=== PATIENT | female | born 1990 | race Caucasian/White ===

== ENCOUNTER 2018-05-20 03:40 | Observation (INO) ==
[2018-05-20] MEDS ORDERED: fentaNYL Citrate Inj 100 MCG/2 ML Ampul IV.PUSH PRN (04:39)
[2018-05-20] MEDS ORDERED: Clindamycin 900 mg/NS Premix 900 MG/50 ML PIGGYBACK IV.SIG SCH (04:45)
[2018-05-20 05:04] LABS: Hemoglobin 13.1 gm/dL (11.6-15.3); Mean Corpuscular HGB Conc 34.6 % (32.0-36.0); Mean Corpuscular Hemoglobin 31.6 pg (27.0-34.0); Mean Corpuscular Volume 91.4 fL (80.0-100.0); Mean Platelet Volume 8.4 fL (7.0-11.0); Platelet Count 219 th/mm3 (150-450); Red Blood Count 4.16 mil/mm3 (4.00-5.30); Red Cell Distribution Width 13.1 % (11.6-17.2); White Blood Count 15.6 th/mm3 (4.0-11.0)
[2018-05-20 05:09] LABS: Amphetamine Urine With Conf Neg (Neg); Benzodiazepine Urine With Conf Neg (Neg)
[2018-05-20] MEDS: Betamethasone Sod Phos/Acetate Inj 30 MG/5 ML Vial IM SCH ×2 (05:28→16:06)
--- NOTE | 2018-05-20 05:29 | P.HPOB ---
History of Present Illness Primary Care Physician: No Primary Care Physician Dr. Manrique Chief Complaint: CTXs History of Present Illness: Patient is 28-year-old white female at 33 weeks he goes to the [facility] clinic and sees Dr. Dobbins there, presents complaining of contractions since 11 PM last night, denies leakage of fluid or bleeding. Babies active. heart rate tracing is reactive and she is rosemarie every 2 minutes painfully Weeks Gestation:: 33 Para: 1 : 2 - Inpatient Certification If this patient has been admitted as an Inpatient: I certify that the inpatient services were ordered in accordance with Medicare regulations governing the order. This includes certification that hospital inpatient services are reasonable and necessary and in the case of services not specified as inpatient-only under 42 CFR 419.22(n), that they are appropriately provided as inpatient services in accordance to with the 2-midnight benchmark under 43 CFR 412.3(e) Plans for Post Hospital Care: Home Review of Systems Constitutional: Denies anorexia, Denies body ache(s), Denies chills, Denies daytime sleepiness, Denies excessive sweating, Denies fatigue, Denies fever(s), Denies headache(s), Denies increased appetite, Denies lack of energy, Denies malaise, Denies night sweats, Denies weakness, Denies weight gain, Denies weight loss, Denies other Cardiovascular: Denies bluish discoloration of hand/feet, Denies chest pain, Denies chest pain at rest, Denies chest pain with activity, Denies excessive sweating, Denies fainting, Denies fast heart rate, Denies foot swelling, Denies generalized swelling, Denies irregular heart rhythm, Denies leg pain with activity, Denies leg sores, Denies leg swelling, Denies lightheadedness, Denies radiating jaw, neck or arm pain, Denies rapid, pounding, or irregular heartbeat , Denies shortness of breath, Denies shortness of breath with activity, Denies shortness of breath when lying down, Denies shortness of breath causing sudden awakening, Denies slow heart rate, Denies other Respiratory: Denies change in phlegm color, Denies chest congestion, Denies cough, Denies coughing up blood, Denies excessive phlegm production, Denies pain on inspiration, Denies pain with cough, Denies shortness of breath, Denies shortness of breath with activity, Denies snoring, Denies stridor, Denies wheezing, Denies other Gastrointestinal: Denies abdominal pain, Denies belching, Denies black, tarry stools, Denies bloating, Denies bright, red blood in stools, Denies change in bowel habits, Denies constant urge to pass stool, Denies change in stools, Denies coffee ground vomit, Denies constipation, Denies cramping, Denies difficulty swallowing, Denies excessive passing of gas, Denies feeling full early, Denies heartburn, Denies incontinent of stools, Denies loose stools, Denies nausea, Denies pain with swallowing, Denies vomiting, Denies vomiting blood, Denies other Genitourinary: Denies abnormal periods, Denies abnormal vaginal bleeding, Denies absent period, Denies bleeding between periods, Denies blood in urine, Denies difficulty starting urination, Denies difficulty urinating, Denies dribbling after urination, Denies frequent nighttime urination, Denies genital itching, Denies genital lesions, Denies heavy periods, Denies hot flashes, Denies light periods, Denies nipple discharge, Denies painful intercourse, Denies painful periods, Denies painful urination, Denies pelvic pain, Denies prolapse symptoms, Denies sexual problems, Denies side pain, Denies urinary incontinence, Denies urinary urgency, Denies vaginal discharge, Denies vaginal dryness, Denies vaginal odor, Denies vaginal itching, Denies other Neurologic: Denies abnormal hearing, Denies abnormal movements, Denies abnormal speech, Denies abnormal walking, Denies behavioral changes, Denies burning sensations, Denies confusion, Denies dizziness, Denies fainting, Denies frequent falls, Denies headache(s), Denies lack of coordination, Denies localized weakness, Denies loss of vision, Denies memory loss, Denies numbness, Denies other visual disturbances, Denies radiating pain, Denies restless legs, Denies convulsions, Denies seizure-like activity, Denies sensory deficit, Denies tingling, Denies tingling/numbness/burning sensations, Denies tremor(s), Denies unsteadiness, Denies weakness, Denies other PMFSH - Tobacco History Smoking Status: Never smoker - Alcohol History How Often Do You Have a Drink Containing Alcohol: Never - Travel History History of Recent Travel: No Recent Travel in the [place] Within the Last 8 Weeks: No Recent Travel Out of the Country Within the Last 8 Weeks: No Medications and Allergies Active Medications: Active Medications Betamethasone Acet/Betameth SodPhos (Celestone Soluspan Inj) 12 mg IM Q24H [facility] Stop: 05/21/18 04:46 Fentanyl Citrate (Fentanyl Inj) 50 mcg IV.PUSH Q2H PRN PRN Reason: PAIN SCALE 1 TO 10 Lactated Ringer's (Lr 1000 Ml Inj) 1,000 mls @ 125 mls/hr IV.CONT .Q8H [facility] Clindamycin/Sodium Chloride (Cleocin 900 Mg/Ns Premix) 900 mg in 50 mls @ 100 mls/hr IV.SIG Q8H [facility] Nifedipine (Procardia) 10 mg PO Q20M [facility] Stop: 05/20/18 06:01 Non-Formulary Medication (Pnv Cmb#95-Ferrous Fumarate-Fa []) 1 tab PO DAILY [facility]SET Sodium Chloride (Ns Flush) 2 ml IV.FLUSH BID LISSET Sodium Chloride (Ns Flush) 2 ml IV.FLUSH PRN PRN PRN Reason: FLUSH AFTER USING IV ACCESS Terbutaline Sulfate (Brethine Inj) 0.25 mg SQ ONCE PRN PRN Reason: ABDOMINAL CRAMPING Allergies Allergy/AdvReac Type Severity Reaction Status Date / Time penicillin G Allergy Severe SWOLEN OF Unverified 06/17/17 12:46 HER THROAT Home Medications Medication Instructions Recorded Confirmed Type PNV cmb#95-ferrous fumarate-FA 1 tab PO DAILY 05/20/18 05/20/18 History [] Exam Vital signs: Vital Signs 05/20/18 03:57 05/20/18 04:00 Temperature 98.1 F Pulse Rate 98 H Respiratory Rate 18 Blood Pressure 117/87 Intake & Output 05/19/18 05/19/18 05/20/18 06:59 18:59 06:59 Weight 72.575 kg - Constitutional no acute distress - Routine HEENT Exam Head: Present: normocephalic, atraumatic Eye: Present: PERRL - Routine Respiratory Exam Present: CTA bilaterally - Routine Cardiovascular Exam Present: RRR - Routine Abdominal Exam Present: soft Comments: Size equal dates - Routine Exam Comments: Cervix is 2-3 /40%/-3 posterior vertex - Routine Skin Exam Present: intact - Routine Neurological Exam Present: alert, oriented X3, CN II-XII intact Results - Labs CBC & Chem 7: 05/20/18 04:30 Labs: Laboratory Results - last 24 hr 05/20/18 05/20/18 04:30 04:30 WBC 15.6 H RBC 4.16 Hgb 13.1 Hct 38.0 MCV 91.4 MCH 31.6 MCHC 34.6 RDW 13.1 Plt Count 219 MPV 8.4 Urine Opiates Screen Neg Ur Barbiturates Screen Neg Ur Amphetamine Screen Neg U Benzodiazepines Scrn Neg Urine Cocaine Screen Neg U Cannabinoids Screen Neg - Imaging Bedside ultrasound done by myself shows a single intrauterine cephalic presentation, normal anatomy scan, normal amniotic fluid volume, placenta is left lateral and fundal grade 0, estimated weight is 2207 gm, gestational age 33 weeks 1 day by biometric measurements Caprini VTE Risk Assessment Caprini VTE Risk Assessment: No/Low Risk (score <= 1) Caprini Risk Assessment Model: Point Value = 1 Point Value = 2 Point Value = 3 Point Value = 5 Age 41-60 Minor surgery BMI > 25 kg/m2 Swollen legs Varicose veins or History of unexplained or recurrent spontaneous Oral contraceptives or hormone replacement Sepsis (< 1 month) Serious lung disease, including pneumonia (< 1 month) Abnormal pulmonary function Acute myocardial infarction Congestive heart failure (< 1 month) History of inflammatory bowel disease Medical patient at bed rest Age 61-74 Arthroscopic surgery Major open surgery (> 45 min) Laparoscopic surgery (> 45 min) Malignancy Confined to bed (> 72 hours) Immobilizing plaster cast Central venous access Age >= 75 History of VTE Family history of VTE Factor V Leiden Prothrombin [id number] Lupus anticoagulant Anticardiolipin antibodies Elevated serum homocysteine Heparin-induced thrombocytopenia Other congenital or acquired thrombophilia Stroke (< 1 month) Elective arthroplasty Hip, pelvis, or leg fracture Acute spinal cord injury (< 1 month) Prophylaxis Regimen: Total Risk Factor Score Risk Level Prophylaxis Regimen 0-1 Low Early ambulation 2 Moderate Order ONE of the following: *Sequential Compression Device (SCD) *Heparin 5000 units SQ BID 3-4 Higher Order ONE of the following medications: *Heparin 5000 units SQ TID *Enoxaparin/Lovenox 40 mg SQ daily (WT < 150 kg, CrCl > 30 mL/min) *Enoxaparin/Lovenox 30 mg SQ daily (WT < 150 kg, CrCl > 10-29 mL/min) *Enoxaparin/Lovenox 30 mg SQ BID (WT < 150 kg, CrCl > 30 mL/min) AND/OR *Sequential Compression Device (SCD) 5 or more Highest Order ONE of the following medications: *Heparin 5000 units SQ TID (Preferred with Epidurals) *Enoxaparin/Lovenox 40 mg SQ daily (WT < 150 kg, CrCl > 30 mL/min) *Enoxaparin/Lovenox 30 mg SQ daily (WT < 150 kg, CrCl > 10-29 mL/min) *Enoxaparin/Lovenox 30 mg SQ BID (WT < 150 kg, CrCl > 30 mL/min) AND *Sequential Compression Device (SCD) Assessment and Plan - Diagnosis (1) labor in third trimester Code(s): O60.03 - labor without delivery, third trimester Status: Acute - Plan Plan to tocolyse labor with Procardia after giving IV hydration, subcu terbutaline, this was after discussion with her primary melter caster Dr. Manrique. Patient to receive betamethasone injection 12 mg every 24 hours 2 Also start clindamycin 900 mg every 8 hours IV[patient has a penicillin allergy] We will check CBC and urinalysis as well as GBS rapid screen
[2018-05-20] MEDS: NIFEdipine 10 MG Capsule PO SCH ×2 (05:30→06:17)
--- NOTE | 2018-05-20 06:45 | P.OBGPN ---
Reviewed orders on pt, switched to Vanc for GBS ppx as do not know clinda susceptible. GBS culture pending. Placed NICU and MFM consult (MFM only for growth), and briefly notified my on coming partner of the patient
[2018-05-20 07:42] LABS: Bilirubin,Urine Negative (Negative); Clarity,Urine Clear (Clear); Color,Urine Yellow (Yellw/Straw); Glucose,Urine (UA) Negative (Negative); Leukocyte Esterase,Urine Negative (Negative); Nitrite,Urine Negative (Negative); Specific Gravity,Urine 1.004 (1.002-1.035); Squamous Epithelial Cell,Urine <1 /hpf (0-5)
[2018-05-20] MEDS ORDERED: Mag Sulf/Water 4 gm/100 ml 100 ML IV.SIG ONE (08:06)
--- NOTE | 2018-05-20 08:12 | P.OBANTE ---
Subjective Interval History: 28 yo wf at 33 weeks with regular contractions this am despite hyudration, antibiotics and nifedipine. Has received one dose steroids. no recent infection reported but WBC elevated. GFM No leaking but bloody show on glove. 3 cm/80/-1 vertex. No elevated BP. No N,V,CHEEMA or blurred vision. Objective Vital Signs and I&O: Vital Signs 05/20/18 03:57 05/20/18 04:00 05/20/18 05:34 Temperature 98.1 F Pulse Rate 98 H 122 H Respiratory Rate 18 Blood Pressure 117/87 117/57 L Intake & Output 05/19/18 05/20/18 05/20/18 18:59 06:59 18:59 Weight 72.575 kg 65.318 kg Lab and Micro Results: Laboratory Results - last 24 hr 05/20/18 05/20/18 05/20/18 04:30 04:30 04:30 WBC 15.6 H RBC 4.16 Hgb 13.1 Hct 38.0 MCV 91.4 MCH 31.6 MCHC 34.6 RDW 13.1 Plt Count 219 MPV 8.4 Urine Color Urine Clarity Urine pH Ur Specific [place] Urine Protein Urine Glucose (UA) Urine Ketones Urine Occult Blood Urine Nitrate Urine Bilirubin Urine Urobilinogen Ur Leukocyte Esterase Urine WBC Ur Squamous Epith Cells Micro UA Comment Urine Culture Comments Urine Opiates Screen Neg Ur Barbiturates Screen Neg Ur Amphetamine Screen Neg U Benzodiazepines Scrn Neg Urine Cocaine Screen Neg U Cannabinoids Screen Neg Blood Type B Positive Antibody Screen Negative 05/20/18 04:30 WBC RBC Hgb Hct MCV MCH MCHC RDW Plt Count MPV Urine Color Yellow Urine Clarity Clear Urine pH 7.0 Ur Specific [place] 1.004 Urine Protein Negative Urine Glucose (UA) Negative Urine Ketones Trace H Urine Occult Blood Negative Urine Nitrate Negative Urine Bilirubin Negative Urine Urobilinogen Less than 2 Ur Leukocyte Esterase Negative Urine WBC Less than 1 Ur Squamous Epith Cells <1 Micro UA Comment Culture not ind Urine Culture Comments Culture not ind Urine Opiates Screen Ur Barbiturates Screen Ur Amphetamine Screen U Benzodiazepines Scrn Urine Cocaine Screen U Cannabinoids Screen Blood Type Antibody Screen Physical Exam: GENERAL: Well-nourished, well-developed patient. CARDIOVASCULAR: Regular rate and rhythm without murmurs, gallops, or rubs. RESPIRATORY: Breath sounds equal bilaterally. No accessory muscle use. ABDOMEN/GI: Abdomen soft, non-tender. Fundus: [-] GENITOURINARY: External Genitalia: intact and normal in appearance 3/80/-1 vertex low pressure on cervix noted EXTREMITIES: No cyanosis or edema, non-tender, without signs of DVT. Assessment and Plan - Diagnosis (1) labor in third trimester Code(s): O60.03 - labor without delivery, third trimester Status: Acute - Plan Plan to tocolyse labor with Procardia after giving IV hydration, subcu terbutaline, this was after discussion with her primary project development engineer Dr. Manrique. Patient to receive betamethasone injection 12 mg every 24 hours 2 Also start clindamycin 900 mg every 8 hours IV[patient has a penicillin allergy] We will check CBC and urinalysis as well as GBS rapid screen 05/20/18 8:00 Will stop procardia and start Mg patel prn continiue antibiotics for now BPP and EFW for NICU second dose steroids possible PTD
[2018-05-20] MEDS: Vancomycin Inj 1,000 MG in Sodium Chlor 0.9% Inj 250 ML IV.SIG SCH (08:18)
[2018-05-20] MEDS: Mag Sulf/Water 40 gm/1000 ml 40 GM/1,000 ML BAG IV.CONT SCH (08:36)
[2018-05-20] MEDS ORDERED: Prenatal Vit/Ca/Iron/Folic Acid Tablet PO SCH (09:00)
[2018-05-20] MEDS ORDERED: fentaNYL 2MCG-Bupiv 0.125% Epi 150 ML EPIDURAL ONE (15:17)
[2018-05-20] MEDS ORDERED: Betamethasone Sod Phos/Acetate Inj 30 MG/5 ML Vial IM ONE (16:00)
[2018-05-20] MEDS ORDERED: fentaNYL Citrate Inj 100 MCG/2 ML Ampul EPIDURAL ONE (16:10)
[2018-05-20] MEDS ORDERED: fentaNYL 2MCG-Bupiv 0.125% Epi 150 ML EPIDURAL PRN (16:10)
--- NOTE | 2018-05-20 18:02 | P.OBLABOR ---
Subjective Interval history: In midafternoon contractions increased in frequency and intensity and she was transferred to labor side and given an epidural. They have greatly diminished. tolerating mag well. Will keep status quo until tomorrow morning and then stop Mag and see if labors or not. Objective Vital Signs: Vital Signs - 8 hr 05/20/18 10:20 05/20/18 10:25 05/20/18 10:35 Temperature Pulse Rate 119 H 113 H 112 H Respiratory Rate Blood Pressure 119/56 L 05/20/18 10:40 05/20/18 10:45 05/20/18 10:49 Temperature Pulse Rate 111 H 132 H Respiratory Rate 18 Blood Pressure 05/20/18 10:50 05/20/18 10:55 05/20/18 11:10 Temperature Pulse Rate 113 H 120 H 119 H Respiratory Rate Blood Pressure 128/60 05/20/18 11:35 05/20/18 11:55 05/20/18 12:40 Temperature Pulse Rate 117 H 119 H 107 H Respiratory Rate Blood Pressure 136/57 L 05/20/18 12:55 05/20/18 13:00 05/20/18 13:40 Temperature Pulse Rate 101 H 121 H 106 H Respiratory Rate 20 Blood Pressure 05/20/18 13:55 05/20/18 13:57 05/20/18 14:00 Temperature 98.2 F Pulse Rate 115 H 118 H Respiratory Rate Blood Pressure 05/20/18 14:05 05/20/18 14:10 05/20/18 14:25 Temperature Pulse Rate 116 H 116 H 110 H Respiratory Rate Blood Pressure 123/68 05/20/18 15:45 05/20/18 15:50 05/20/18 15:55 Temperature Pulse Rate 104 H 102 H 97 H Respiratory Rate Blood Pressure 135/79 112/70 113/69 05/20/18 16:00 05/20/18 16:10 05/20/18 16:50 Temperature Pulse Rate 104 H 97 H Respiratory Rate 18 Blood Pressure 111/64 116/65 05/20/18 16:55 05/20/18 17:00 05/20/18 17:40 Temperature 97.4 F L Pulse Rate 97 H 101 H 96 H Respiratory Rate 18 Blood Pressure 121/70 121/73 Objective: Pelvic Exam: Cervix: [-] Dilatation: [-] Effacement: [-] Station: [-] Presentation: [-] Membranes: [intact or ruptured] Uterine Contractions: [-] FHT's: Category: [-] Baseline: [-] Reactive: [-] Variability: [-] Decels: [-] Assessment and Plan - Diagnosis (1) labor in third trimester Code(s): O60.03 - labor without delivery, third trimester Status: Acute - Plan Plan to tocolyse labor with Procardia after giving IV hydration, subcu terbutaline, this was after discussion with her primary penology teacher Dr. Manrique. Patient to receive betamethasone injection 12 mg every 24 hours 2 Also start clindamycin 900 mg every 8 hours IV[patient has a penicillin allergy] We will check CBC and urinalysis as well as GBS rapid screen 05/20/18 8:00 Will stop procardia and start Mg patel prn continiue antibiotics for now BPP and EFW for NICU second dose steroids possible PTD
[2018-05-21] MEDS: Vancomycin Inj 1,000 MG in Sodium Chlor 0.9% Inj 250 ML IV.SIG SCH (06:00)
[2018-05-21] MEDS: Mag Sulf/Water 40 gm/1000 ml 40 GM/1,000 ML BAG IV.CONT SCH (06:02)
--- NOTE | 2018-05-21 07:53 | P.OBANTE ---
Subjective Interval History: With Magnesium for neuroprotection and epidural contractions have stopped. will discontinue magnesium and turn off epidural and leave in place. if contractions resume, we will allow to deliver if they do not return will consider discharge to home. patient lives in [place]. Objective Vital Signs and I&O: Vital Signs 05/20/18 08:29 05/20/18 08:44 05/20/18 08:45 Temperature Pulse Rate 111 H 125 H 126 H Respiratory Rate 18 17 Blood Pressure 111/46 L 116/49 L 123/49 L 05/20/18 08:55 05/20/18 09:00 05/20/18 09:20 Temperature 97.9 F Pulse Rate 127 H 120 H 123 H Respiratory Rate Blood Pressure 118/47 L 117/50 L 05/20/18 09:30 05/20/18 09:35 05/20/18 09:55 Temperature Pulse Rate 115 H 123 H 139 H Respiratory Rate Blood Pressure 05/20/18 10:20 05/20/18 10:25 05/20/18 10:35 Temperature Pulse Rate 119 H 113 H 112 H Respiratory Rate Blood Pressure 119/56 L 05/20/18 10:40 05/20/18 10:45 05/20/18 10:49 Temperature Pulse Rate 111 H 132 H Respiratory Rate 18 Blood Pressure 05/20/18 10:50 05/20/18 10:55 05/20/18 11:10 Temperature Pulse Rate 113 H 120 H 119 H Respiratory Rate Blood Pressure 128/60 05/20/18 11:35 05/20/18 11:55 05/20/18 12:40 Temperature Pulse Rate 117 H 119 H 107 H Respiratory Rate Blood Pressure 136/57 L 05/20/18 12:55 05/20/18 13:00 05/20/18 13:40 Temperature Pulse Rate 101 H 121 H 106 H Respiratory Rate 20 Blood Pressure 05/20/18 13:55 05/20/18 13:57 05/20/18 14:00 Temperature 98.2 F Pulse Rate 115 H 118 H Respiratory Rate Blood Pressure 05/20/18 14:05 05/20/18 14:10 05/20/18 14:25 Temperature Pulse Rate 116 H 116 H 110 H Respiratory Rate Blood Pressure 123/68 05/20/18 15:45 05/20/18 15:50 05/20/18 15:55 Temperature Pulse Rate 104 H 102 H 97 H Respiratory Rate Blood Pressure 135/79 112/70 113/69 05/20/18 16:00 05/20/18 16:10 05/20/18 16:50 Temperature Pulse Rate 104 H 97 H Respiratory Rate 18 Blood Pressure 111/64 116/65 05/20/18 16:55 05/20/18 17:00 05/20/18 17:40 Temperature 97.4 F L Pulse Rate 97 H 101 H 96 H Respiratory Rate 18 Blood Pressure 121/70 121/73 05/20/18 17:55 05/20/18 18:15 05/20/18 18:25 Temperature Pulse Rate 94 H 96 H 89 Respiratory Rate 17 Blood Pressure 113/76 05/20/18 18:31 05/20/18 19:15 05/20/18 20:15 Temperature 98.0 F Pulse Rate 100 H 89 Respiratory Rate 18 18 Blood Pressure 125/68 120/71 05/20/18 20:40 05/20/18 22:55 05/20/18 23:40 Temperature Pulse Rate 75 80 72 Respiratory Rate Blood Pressure 118/63 109/61 05/21/18 01:10 05/21/18 01:40 05/21/18 02:40 Temperature Pulse Rate 85 70 77 Respiratory Rate Blood Pressure 114/70 118/59 L 111/59 L 05/21/18 05:35 Temperature Pulse Rate 69 Respiratory Rate Blood Pressure 108/56 L Intake & Output 05/20/18 05/21/18 05/21/18 18:59 06:59 18:59 Intake Total 1250 / 1250 1999 / 1999 Balance 1250 / 1250 1999 / 1999 Weight 65.318 kg Intake: IV 1250 / 1250 1999 / 1999 LR 1000 mL Inj 1,000 ML @ 125 1000 / 1000 1000 / 1000 mls/hr IV.CONT .Q8H [facility] Rx#: [id number] Magnesium Sulfate/Water 40 gm/ 1000 / 1000 1000 ml Premix 40 gm In 1,000 ml @ 2 GM/HR 50 mls/hr IV.CONT Q24H [facility] Rx#:[id number] Vancomycin Inj 1,000 MG In NS 250 / 250 Inj 250 ML @ 250 mls/hr IV.SIG Q12H [facility] Rx#:[id number] Lab and Micro Results: Laboratory Results - last 24 hr 05/20/18 07:30 Group B Strep (PCR) Positive Physical Exam: GENERAL: Well-nourished, well-developed patient. CARDIOVASCULAR: Regular rate and rhythm without murmurs, gallops, or rubs. RESPIRATORY: Breath sounds equal bilaterally. No accessory muscle use. ABDOMEN/GI: Abdomen soft, non-tender. Fundus: [-] GENITOURINARY: External Genitalia: intact and normal in appearance Cervix: [-] Dilatation: [-] Effacement: [-] Station: [-] Presentation: [-] Membranes: [-] Uterine Contractions: [-] FHT's: Category: [-] Baseline: [-] Reactive: [-] Variability: [-] Decels: [-] EXTREMITIES: No cyanosis or edema, non-tender, without signs of DVT. Assessment and Plan - Diagnosis (1) labor in third trimester Code(s): O60.03 - labor without delivery, third trimester Status: Acute - Plan Plan to tocolyse labor with Procardia after giving IV hydration, subcu terbutaline, this was after discussion with her primary efficiency expert Dr. Manrique. Patient to receive betamethasone injection 12 mg every 24 hours 2 Also start clindamycin 900 mg every 8 hours IV[patient has a penicillin allergy] We will check CBC and urinalysis as well as GBS rapid screen 05/20/18 8:00 Will stop procardia and start Mg patel prn continiue antibiotics for now BPP and EFW for NICU second dose steroids possible PTD
== END 2018-05-21 15:30 | disposition home or self-care (01) ==
LOC: HOBED 03:40 → H2E 03:40
PROVIDERS: ADMIT Obstetrics & Gynecology; ATTEND Obstetrics & Gynecology

== ENCOUNTER 2018-06-14 00:40 | Inpatient (IN) ==
--- NOTE | 2018-06-14 01:35 | ED ---
History of Present Illness Primary Care Physician: UNKNOWN Chief Complaint: ctx History of Present Illness: Pt is a 28y/o @ 36.4wks. She has PNC with Dr. Dobbins. Has a h/o PTL this preg s/p APU admission and BMZ. Was d/c'd at 3-4cm dilated. Presents this evening with c/o ctx since 10pm. Reports being uncomfortable in bed and then had emesis/diarrhea. Denies LOF or VB. +FM. OBHx: 1. 2. current Weeks Gestation:: 36 Para: 1 : 2 Review of Systems All other systems reviewed negative except as stated in HPI PMFSH - Medical History Medical History: Medical History (Last Updated 06/14/18 @ 01:32 by Krystyna Calvin MD) H/O wisdom tooth extraction - Surgical History Surgical History: Surgical History (Last Updated 06/14/18 @ 01:32 by Krystyna Calvin MD) History of breast augmentation History of surgery on arm - Tobacco History Smoking Status: Never smoker - Alcohol History How Often Do You Have a Drink Containing Alcohol: Never - Travel History History of Recent Travel: No Medications and Allergies Active Medications: Active Medications Lactated Ringer's (Lr 1000 Ml Inj) 1,000 mls @ 0 mls/hr IV.CONT .Q0M [facility]ISSET Sodium Chloride (Ns Flush) 2 ml IV.FLUSH BID LISSET Sodium Chloride (Ns Flush) 2 ml IV.FLUSH PRN PRN PRN Reason: FLUSH AFTER USING IV ACCESS Allergies Allergy/AdvReac Type Severity Reaction Status Date / Time penicillin G Allergy Severe SWOLEN OF Verified 06/14/18 01:54 HER THROAT Home Medications Medication Instructions Recorded Confirmed Type PNV cmb#95-ferrous fumarate-FA 1 tab PO DAILY 05/20/18 06/14/18 History [] Exam Vital signs: Vital Signs 06/14/18 01:00 Temperature 98.1 F Pulse Rate 82 Respiratory Rate 18 Blood Pressure 123/69 Intake & Output 06/13/18 06/13/18 06/14/18 06:59 18:59 06:59 Weight 73.936 kg Narrative: General: well developed, well nourished, no acute distress HEENT: normocephalic atraumatic, extraocular movements intact, neck supple Abdomen: soft, gravid, nontender, nondistended Uterus: fundus palpates mild Extremities: full range of motion Skin: normal coloration, no rashes, no suspicious skin lesions noted Neurologic: cranial nerves 2-12 grossly intact, normal muscle tone, normal gait Psychiatric: normal mood and affect, appropriate FHTs: 130s, +accels, no decels, moderate variability, reactive Mcguffey: ctx q1.5m (mild to pt) Cvx: 3-50/-2 (unchanged from prior discharge) Assessment and Plan - Diagnosis (1) 36 weeks gestation of Code(s): Z3A.36 - 36 weeks gestation of Status: Acute (2) contractions Code(s): O47.9 - False labor, unspecified Status: Acute - Plan 28y/o @ 36.4wks with ctx. -- s/p BMZ -- FHTs cat 1 -- cvx stable from prior d/c -- check UA -- IVF bolus Dispo: recheck cvx in 1hr if ctx continue Update @ 02:25 -- cvx 570/-2 -- admit to L&D -- CLD, CEFM/toco, epidural/patel PRN -- vanc for GBS+ with PCN throat swelling Dr. Red, client liaison, notified of pt status and agrees with plan of care. She would assume care of the pt. Courtesy orders placed. Discharge Plan - Physicians Team ED Provider: Krystyna Calvin V Primary Care Provider: UNKNOWN, - Rxs /Orders / Referrals /Forms Prescriptions: No Action PNV cmb#95-ferrous fumarate-FA [] 28 mg iron- 800 mcg Tablet 1 tab PO DAILY - Discharge Instructions Print Language: Greenlandic
[2018-06-14 01:55] LABS: Bilirubin,Urine Negative (Negative); Clarity,Urine Clear (Clear); Color,Urine Yellow (Yellw/Straw); Glucose,Urine (UA) Negative (Negative); Leukocyte Esterase,Urine Negative (Negative); Nitrite,Urine Negative (Negative); Specific Gravity,Urine 1.005 (1.002-1.035)
[2018-06-14] MEDS ORDERED: Sodium Chlor 0.9% Inj 500 ML IV.SIG PRN (02:24)
[2018-06-14] MEDS ORDERED: Naloxone Inj 0.4 MG/ML Vial IV.PUSH PRN ×2 (02:24→11:36)
[2018-06-14] MEDS ORDERED: fentaNYL Citrate Inj 100 MCG/2 ML Ampul IV.PUSH PRN (02:24)
[2018-06-14] MEDS ORDERED: Sod Chloride 0.9% Inj 1,000 ML IV.CONT PRN (02:24)
[2018-06-14] MEDS ORDERED: Oxytocin 30 Units/500ml Premix 30 UNITS/500 ML BAG IV.SIG ONE (02:24)
[2018-06-14] MEDS ORDERED: Citric Acid/Sodium Citrate Liq 30 ML UDC PO SCH (02:30)
[2018-06-14] MEDS ORDERED: fentaNYL 2MCG-Bupiv 0.125% Epi 150 ML EPIDURAL ONE (02:34)
[2018-06-14] MEDS ORDERED: Lidocaine PF 1% Inj 5 ML Vial ONE (02:35)
[2018-06-14] MEDS ORDERED: Vancomycin Inj 1 GM/200 ML PIGGYBACK IV.SIG SCH (03:00)
[2018-06-14] MEDS: Vancomycin Inj 1,000 MG in Sodium Chlor 0.9% Inj 250 ML IV.SIG SCH ×2 (03:06→16:27)
[2018-06-14 03:07] LABS: Baso % (Auto) 0.2 % (0.0-2.0); Eos % (Auto) 0.2 % (0.0-4.0); Hematocrit 37.7 % (35.0-46.0); Hemoglobin 13.4 gm/dL (11.6-15.3); Lymph # (Auto) 1.8 th/mm3 (1.0-4.8); Lymph % (Auto) 13.8 % (9.0-44.0); Mean Corpuscular HGB Conc 35.4 % (32.0-36.0); Mean Corpuscular Hemoglobin 32.3 pg (27.0-34.0); Mean Corpuscular Volume 91.1 fL (80.0-100.0); Mean Platelet Volume 8.6 fL (7.0-11.0); Mono # (Auto) 0.7 th/mm3 (0.0-0.9); Mono % (Auto) 5.6 % (0.0-8.0); Neut # (Auto) 10.2 th/mm3 (1.8-7.7); Neut % (Auto) 80.2 % (16.0-70.0); Platelet Count 212 th/mm3 (150-450); Red Blood Count 4.14 mil/mm3 (4.00-5.30); Red Cell Distribution Width 13.7 % (11.6-17.2); White Blood Count 12.7 th/mm3 (4.0-11.0)
[2018-06-14 03:17] LABS: Amphetamine Urine With Conf Neg (Neg); Benzodiazepine Urine With Conf Neg (Neg)
[2018-06-14] MEDS ORDERED: fentaNYL 2MCG-Bupiv 0.125% Epi 150 ML EPIDURAL PRN (04:02)
[2018-06-14] MEDS ORDERED: fentaNYL Citrate Inj 100 MCG/2 ML Ampul EPIDURAL ONE (04:02)
[2018-06-14] MEDS ORDERED: Oxytocin 30 Units/500ml Premix 30 UNITS/500 ML BAG IV.SIG PRN (09:31)
--- NOTE | 2018-06-14 09:36 | P.OBLABOR ---
Subjective Interval history: pt comfortable with epidural Objective Vital Signs: Vital Signs - 8 hr 06/14/18 03:20 06/14/18 03:30 06/14/18 03:40 Temperature Pulse Rate 74 84 Respiratory Rate 18 Blood Pressure 115/74 124/82 06/14/18 03:45 06/14/18 03:55 06/14/18 04:30 Temperature Pulse Rate 78 76 92 H Respiratory Rate Blood Pressure 109/67 115/72 151/133 H 06/14/18 04:45 06/14/18 05:00 06/14/18 05:30 Temperature Pulse Rate 68 70 61 Respiratory Rate Blood Pressure 122/79 109/78 06/14/18 06:00 06/14/18 06:16 06/14/18 06:30 Temperature Pulse Rate 66 71 65 Respiratory Rate Blood Pressure 118/68 115/91 H 110/67 06/14/18 06:54 06/14/18 07:00 06/14/18 07:30 Temperature Pulse Rate 64 72 Respiratory Rate 15 16 Blood Pressure 119/69 124/77 06/14/18 07:31 06/14/18 07:34 06/14/18 07:59 Temperature 98.1 F Pulse Rate 82 58 L Respiratory Rate 16 16 Blood Pressure 135/91 H 102/63 06/14/18 08:00 06/14/18 08:30 06/14/18 08:45 Temperature Pulse Rate 68 74 71 Respiratory Rate 16 16 Blood Pressure 103/53 L 116/87 132/76 06/14/18 09:15 Temperature Pulse Rate 79 Respiratory Rate Blood Pressure 111/75 Objective: Pelvic Exam: Cervix: [-] 5-6cm Dilatation: [-] Effacement: [-] 70 Station: [-] -1 Presentation: [-] vtx Membranes: [intact or ruptured] arom clear Uterine Contractions: [-] irreg FHT's: Category: [-] 1 Baseline: [-] Reactive: [-] Variability: [-] good Decels: [-] Weeks Gestation: 36 Patient Started Active Labor: Yes Active Labor Start Date: 06/14/18 Active Labor Start Time: 02:00 Medical Induction of Labor: No Artificial Rupture of Membrane: Yes Artificial ROM Date: 06/14/18 Artificial ROM Time: 08:45 Assessment and Plan - Plan 28y/o @ 36.4wks with ctx. -- s/p BMZ -- FHTs cat 1 -- vanc for GBS+ with PCN throat swelling arom clear, pit jun, has epid, anticipate Discharge Plannin-3 days PP - Attending Attestation pt seen by me
[2018-06-14] MEDS ORDERED: Witch Hazel 50%/Glyderin 12.5% 40 Pad Jar RECTAL PRN (11:36)
[2018-06-14] MEDS ORDERED: Bisacodyl 10 MG Supp RECTAL PRN (11:36)
[2018-06-14] MEDS ORDERED: Zolpidem Tartrate 5 MG Tablet PO PRN (11:36)
[2018-06-14] MEDS ORDERED: Benzocaine 20% Top Spray 60 ML Can TOPICAL PRN (11:36)
[2018-06-14] MEDS ORDERED: Acetaminophen 325 MG Tablet PO PRN (11:36)
--- NOTE | 2018-06-14 11:36 | P.OBDELI ---
Weeks Gestation: 36 Patient Started Active Labor: Yes Active Labor Start Date: 06/14/18 Active Labor Start Time: 08:42 Medical Induction of Labor: No Artificial Rupture of Membrane: Yes Artificial ROM Date: 06/14/18 Artificial ROM Time: 08:42 Anesthesia: Epidural Episiotomy: none Vaginal Delivery: Normal Presentation: Occiput anterior, Face presentation, Compound (rt hand) Nuchal Cord: None Delayed Cord Clamping (45 sec): Yes Placenta: Spontaneous delivery Laceration: 1 deg Repair: Chromic interrupted Estimated blood loss (mL): 250 : Male (ALIRIO)
[2018-06-14] MEDS ORDERED: Oxytocin 30 Units/500ml Premix 30 UNITS/500 ML BAG IV.CONT SCH (11:45)
[2018-06-14] MEDS ORDERED: Measles/Mumps/Rubella Vaccine Inj 0.5 ML Vial SQ ONE (16:00)
[2018-06-14] MEDS ORDERED: Diphtheria/Tetanus/Pertussis Vaccine Inj 0.5 ML Syringe IM ONE (16:00)
[2018-06-14] MEDS: Prenatal Vit/Ca/Iron/Folic Acid Tablet PO SCH (16:27)
[2018-06-15] MEDS: Senna/Docusate Sodium 8.6/50 MG Tablet PO SCH ×2 (00:32→08:13)
[2018-06-15] MEDS: Ibuprofen 400 MG Tablet PO PRN ×2 (02:32→10:35)
[2018-06-15] MEDS: Vancomycin Inj 1,000 MG in Sodium Chlor 0.9% Inj 250 ML IV.SIG SCH ×2 (06:17→17:08)
--- NOTE | 2018-06-15 08:08 | P.PNOB ---
Subjective Post day: 1 Interval history: pt did well overnight PPD#1, ambulating, voiding, , pain well controlled Objective Vital Signs/I&O: Vital Signs 06/14/18 08:30 06/14/18 08:45 06/14/18 09:15 Temperature Pulse Rate 74 71 79 Respiratory Rate 16 16 Blood Pressure 116/87 132/76 111/75 06/14/18 10:00 06/14/18 10:15 06/14/18 10:45 Temperature Pulse Rate 69 Respiratory Rate 18 18 18 Blood Pressure 113/69 06/14/18 10:46 06/14/18 10:50 06/14/18 11:01 Temperature Pulse Rate 94 H 80 Respiratory Rate 18 Blood Pressure 130/71 104/61 06/14/18 11:15 06/14/18 11:46 06/14/18 12:30 Temperature Pulse Rate 85 55 L 64 Respiratory Rate 18 18 Blood Pressure 140/77 161/104 H 111/63 06/14/18 12:31 06/14/18 12:45 06/14/18 13:00 Temperature 99.0 F Pulse Rate 117 H Respiratory Rate 16 18 Blood Pressure 110/86 06/14/18 13:01 06/14/18 14:30 06/14/18 21:50 Temperature 97.6 F 98.6 F Pulse Rate 62 64 60 Respiratory Rate 18 16 Blood Pressure 102/60 115/69 109/72 Result Diagrams: 06/14/18 01:30 Objective Remarks: GENERAL: Well-nourished, well-developed patient. CARDIOVASCULAR: Regular rate and rhythm without murmurs, gallops, or rubs. RESPIRATORY: Breath sounds equal bilaterally. No accessory muscle use. ABDOMEN/GI: Abdomen soft, non-tender. Fundus: Firm, non-tender at umbilicus. GENITOURINARY: Light to moderate bleeding. EXTREMITIES: No cyanosis or edema, non-tender, without signs of DVT. Medications and IVs: Active Medications Acetaminophen (Tylenol) 650 mg PO Q4H PRN PRN Reason: PAIN SCALE 1 TO 2 Al Hydroxide/Mg Hydroxide (Milk Of Magnesia Liq) 30 ml PO Q12H PRN PRN Reason: Mild Constipation Benzocaine (Americaine 20% Top [place]) 1 spray TOPICAL Q4H PRN PRN Reason: For Perineum Discomfort Bisacodyl (Dulcolax Supp) 10 mg RECTAL DAILY PRN PRN Reason: SEVERE CONSITIPATION Citric Acid/Sodium Citrate (Sodium Citrate/Citric Acid Liq) 30 ml PO [employer] [facility] Stop: 06/18/18 02:29 Fentanyl Citrate (Fentanyl Inj) 50 mcg IV.PUSH Q1H PRN PRN Reason: Pain Scale 3 - 5 Lactated Ringer's (Lr 1000 Ml Inj) 1,000 mls @ 0 mls/hr IV.CONT .Q0M [facility] Last Infusion: 06/14/18 02:47 Dose: Infused Lactated Ringer's (Lr 1000 Ml Inj) 1,000 mls @ 125 mls/hr IV.CONT .Q8H [facility] Last Admin: 06/15/18 06:17 Dose: Not Given Lactated Ringer's (Lr 1000 Ml Inj) 1,000 mls @ 3,000 mls/hr IV.SIG UNSCH PRN PRN Reason: compromise or epidural Last Admin: 06/14/18 09:27 Dose: 3,000 mls/hr Sodium Chloride (Ns Inj) 500 mls @ 1,000 mls/hr IV.SIG UNSCH PRN PRN Reason: SEE LABEL COMMENTS Sodium Chloride (Ns Inj) 1,000 mls @ 100 mls/hr IV.CONT .Q10H PRN PRN Reason: SEE LABEL COMMENTS Vancomycin HCl 1,000 mg/ (Sodium Chloride) 250 mls @ 250 mls/hr IV.SIG Q12H [facility] Last Admin: 06/15/18 06:17 Dose: Not Given Fentanyl/Bupivacaine/Sodium Chlor (Fentanyl 2 Mcg-Bupiv 0.125% Epi) 150 mls @ 12 mls/hr EPIDURAL PRN PRN PRN Reason: for Labor Pain Oxytocin (Pitocin 30 Units/Ns 500 Ml Premix) 30 units in 500 mls @ 2 mls/hr IV.SIG TITRATE PRN; Protocol PRN Reason: For induction of labor Last Admin: 06/14/18 10:13 Dose: 2 milliunit/min, 2 mls/hr Ibuprofen (Motrin) 800 mg PO Q8H PRN PRN Reason: For cramping Last Admin: 06/15/18 02:32 Dose: 800 mg Lactulose (Lactulose Liq) 30 ml PO DAILY PRN PRN Reason: SEVERE CONSITIPATION Lidocaine HCl (Xylocaine 1% Inj) 0.1 ml I-DERMAL PRN PRN PRN Reason: For IV start Stop: 06/17/18 02:23 Lidocaine HCl (Xylocaine 1% Inj) 10 ml INFILTRATN PRN PRN PRN Reason: For episiotomy repair Stop: 06/16/18 02:23 Mineral Oil (Muri-Lube Oil) 10 ml TOPICAL PRN PRN PRN Reason: PRN perineal massage Naloxone HCl (Narcan Inj) 0.1 mg IV.PUSH Q2M PRN PRN Reason: for opiate reversal Naloxone HCl (Narcan Inj) 0.1 mg IV.PUSH Q2M PRN PRN Reason: for opiate reversal Ondansetron HCl (Zofran Inj) 4 mg IV.PUSH Q6H PRN PRN Reason: NAUSEA OR VOMITING Ondansetron HCl (Zofran Odt) 4 mg PO Q6H PRN PRN Reason: NAUSEA OR VOMITING Vit/Calcium/Iron/Folic Ac ([place]uartnatal Plus 3) 1 tab PO DAILY [facility] Last Admin: 06/14/18 16:27 Dose: Not Given Senna/Docusate Sodium ([place]-Colace) 1 tab PO BID [facility] Last Admin: 06/15/18 00:32 Dose: Not Given Sennosides (Senokot) 17.2 mg PO Q12H PRN PRN Reason: Moderate Constipation Sodium Chloride (Ns Flush) 2 ml IV.FLUSH BID [facility] Last Admin: 06/15/18 00:33 Dose: Not Given Sodium Chloride (Ns Flush) 2 ml IV.FLUSH PRN PRN PRN Reason: FLUSH AFTER USING IV ACCESS Sodium Chloride (Ns Flush) 2 ml IV.FLUSH BID [facility] Last Admin: 06/15/18 06:17 Dose: Not Given Sodium Chloride (Ns Flush) 2 ml IV.FLUSH PRN PRN PRN Reason: FLUSH AFTER USING IV ACCESS Witch Arianna/Glycerin (Tucks Pads) 1 applicatio RECTAL QID PRN PRN Reason: HEMORRHOIDS Last Admin: 06/15/18 02:32 Dose: 1 applicatio Zolpidem Tartrate (Ambien) 5 mg PO HS PRN PRN Reason: SLEEP Assessment and Plan - Plan 28y/o s/p at 36.4wks PPD#1 - doing well, infant nursery status, for circ, will perform prior to discharge - routine supportive care, anticipate d/c to home 06/16/18 Discharge Planning: routine, 2-3 days PP
[2018-06-15] MEDS: Prenatal Vit/Ca/Iron/Folic Acid Tablet PO SCH (08:13)
[2018-06-16] MEDS: Vancomycin Inj 1,000 MG in Sodium Chlor 0.9% Inj 250 ML IV.SIG SCH (04:01)
[2018-06-16] MEDS: Senna/Docusate Sodium 8.6/50 MG Tablet PO SCH (08:09)
--- NOTE | 2018-06-16 08:37 | P.PNOB ---
Subjective Post day: 2 Interval history: doing well, min pain w br feeding. min lochia Objective Vital Signs/I&O: Vital Signs 06/15/18 11:00 06/15/18 16:00 06/15/18 21:00 Temperature 98.2 F 98.1 F Pulse Rate 69 61 Respiratory Rate 17 17 18 Blood Pressure 123/73 121/72 Result Diagrams: 06/14/18 01:30 Objective Remarks: GENERAL: Well-nourished, well-developed patient. CARDIOVASCULAR: Regular rate and rhythm without murmurs, gallops, or rubs. RESPIRATORY: Breath sounds equal bilaterally. No accessory muscle use. ABDOMEN/GI: Abdomen soft, non-tender. Fundus: Firm, non-tender at umbilicus. GENITOURINARY: Light to moderate bleeding. EXTREMITIES: No cyanosis or edema, non-tender, without signs of DVT. Medications and IVs: Active Medications Acetaminophen (Tylenol) 650 mg PO Q4H PRN PRN Reason: PAIN SCALE 1 TO 2 Al Hydroxide/Mg Hydroxide (Milk Of Magnesia Liq) 30 ml PO Q12H PRN PRN Reason: Mild Constipation Benzocaine (Americaine 20% Top [place]) 1 spray TOPICAL Q4H PRN PRN Reason: For Perineum Discomfort Last Admin: 06/15/18 08:49 Dose: 1 spray Bisacodyl (Dulcolax Supp) 10 mg RECTAL DAILY PRN PRN Reason: SEVERE CONSITIPATION Citric Acid/Sodium Citrate (Sodium Citrate/Citric Acid Liq) 30 ml PO [employer]IST [facility] Stop: 06/18/18 02:29 Fentanyl Citrate (Fentanyl Inj) 50 mcg IV.PUSH Q1H PRN PRN Reason: Pain Scale 3 - 5 Lactated Ringer's (Lr 1000 Ml Inj) 1,000 mls @ 0 mls/hr IV.CONT .Q0M [facility] Last Infusion: 06/14/18 02:47 Dose: Infused Lactated Ringer's (Lr 1000 Ml Inj) 1,000 mls @ 125 mls/hr IV.CONT .Q8H [facility] Last Admin: 06/16/18 04:01 Dose: Not Given Lactated Ringer's (Lr 1000 Ml Inj) 1,000 mls @ 3,000 mls/hr IV.SIG UNSCH PRN PRN Reason: compromise or epidural Last Admin: 06/14/18 09:27 Dose: 3,000 mls/hr Sodium Chloride (Ns Inj) 500 mls @ 1,000 mls/hr IV.SIG UNSCH PRN PRN Reason: SEE LABEL COMMENTS Sodium Chloride (Ns Inj) 1,000 mls @ 100 mls/hr IV.CONT .Q10H PRN PRN Reason: SEE LABEL COMMENTS Vancomycin HCl 1,000 mg/ (Sodium Chloride) 250 mls @ 250 mls/hr IV.SIG Q12H [facility] Last Admin: 06/16/18 04:01 Dose: Not Given Fentanyl/Bupivacaine/Sodium Chlor (Fentanyl 2 Mcg-Bupiv 0.125% Epi) 150 mls @ 12 mls/hr EPIDURAL PRN PRN PRN Reason: for Labor Pain Oxytocin (Pitocin 30 Units/Ns 500 Ml Premix) 30 units in 500 mls @ 2 mls/hr IV.SIG TITRATE PRN; Protocol PRN Reason: For induction of labor Last Admin: 06/14/18 10:13 Dose: 2 milliunit/min, 2 mls/hr Ibuprofen (Motrin) 800 mg PO Q8H PRN PRN Reason: FOR CRAMPING Last Admin: 06/16/18 03:49 Dose: 800 mg Lactulose (Lactulose Liq) 30 ml PO DAILY PRN PRN Reason: SEVERE CONSITIPATION Lidocaine HCl (Xylocaine 1% Inj) 0.1 ml I-DERMAL PRN PRN PRN Reason: For IV start Stop: 06/17/18 02:23 Mineral Oil (Muri-Lube Oil) 10 ml TOPICAL PRN PRN PRN Reason: PRN perineal massage Naloxone HCl (Narcan Inj) 0.1 mg IV.PUSH Q2M PRN PRN Reason: for opiate reversal Naloxone HCl (Narcan Inj) 0.1 mg IV.PUSH Q2M PRN PRN Reason: for opiate reversal Ondansetron HCl (Zofran Inj) 4 mg IV.PUSH Q6H PRN PRN Reason: NAUSEA OR VOMITING Ondansetron HCl (Zofran Odt) 4 mg PO Q6H PRN PRN Reason: NAUSEA OR VOMITING Vit/Calcium/Iron/Folic Ac (St[place]natal Plus 3) 1 tab PO DAILY [facility] Last Admin: 06/15/18 08:13 Dose: 1 tab Senna/Docusate Sodium ([place]-Colace) 1 tab PO BID [facility] Last Admin: 06/16/18 08:09 Dose: Not Given Sennosides (Senokot) 17.2 mg PO Q12H PRN PRN Reason: Moderate Constipation Sodium Chloride (Ns Flush) 2 ml IV.FLUSH BID [facility] Last Admin: 06/16/18 03:53 Dose: Not Given Sodium Chloride (Ns Flush) 2 ml IV.FLUSH PRN PRN PRN Reason: FLUSH AFTER USING IV ACCESS Sodium Chloride (Ns Flush) 2 ml IV.FLUSH BID [facility] Last Admin: 06/16/18 03:52 Dose: Not Given Sodium Chloride (Ns Flush) 2 ml IV.FLUSH PRN PRN PRN Reason: FLUSH AFTER USING IV ACCESS Witch Arianna/Glycerin (Tucks Pads) 1 applicatio RECTAL QID PRN PRN Reason: HEMORRHOIDS Last Admin: 06/15/18 02:32 Dose: 1 applicatio Zolpidem Tartrate (Ambien) 5 mg PO HS PRN PRN Reason: SLEEP Assessment and Plan - Plan 28y/o s/p at 36.4wks PPD#2 - doing well, nursery status, - routine supportive care, anticipate d/c to home 06/16/18 Discharge Planning: routine, 2-3 days PP
[2018-06-16 09:23] VITALS: BP 113/75; PULSE 59; RESP 16; TEMP 97.6
== END 2018-06-16 16:10 | disposition home or self-care (01) ==
LOC: HOBED 00:40 → H2E 02:26 → H1EA 13:48
PROVIDERS: ADMIT Obstetrics & Gynecology; ATTEND Obstetrics & Gynecology